=== PATIENT | female | born 1955 | race Caucasian/White ===

== ENCOUNTER 2019-01-23 07:00 | Outpatient (RCR) | payer MEDICARE, SELFPAY | END 2019-02-14 08:32 | disposition home or self-care (01) | LOC: PT.CARL 07:00 | PROVIDERS: Referring Provider Family Medicine; Visit Provider Family Medicine | DX: M25.511 Pain in right shoulder (principal) | CPT/HCPCS: 97014; 97110; 97163; G0283 ==

== ENCOUNTER 2021-03-28 04:44 | Emergency (ER) | payer MEDICARE, SELFPAY ==
[2021-03-28] VITALS (10 sets, daily range): BP systolic 128–168; BP diastolic 58–84; PULSE 62–92; RESP 11–21; TEMP 36.7; O2SAT 94–99; BMI 38.8
--- NOTE | 2021-03-28 04:52 | ECG_ITS ---
APPROVED REPORT Exam: Resting ECG HR:86 bpm ECG Measurements Heart Rate 86 AXES ND 152 P 35 QRSd 88 QRS 11 QT 378 T 36 QTc 452 Conclusion Normal sinus rhythm Minimal voltage criteria for LVH, may be normal variant Borderline ECG Electronically signed by : Baron Herrera, 03/30/2021 21:42:18
--- NOTE | 2021-03-28 05:21 | [facility].EDNVD ---
ED Disposition Clinical Impression: Abdominal pain Qualifiers: Abdominal location: epigastric Qualified Code(s): R10.13 - Epigastric pain Disposition: Home, Self-Care Condition on Discharge: Good Instructions: DI for Acute Abdominal Pain Additional Instructions: use meds and call pcp for follow up and gi eval Prescriptions: Pantoprazole Sodium [Protonix 40mg tablet] 40 mg PO DAILY #30 tab Transmission Status: Pending to [id number] Referrals: Manuela Sinha DO [Primary Care Provider] - - Critical Care Critical Care Time: No Attestation: On 03/28/21, the high probability of a clinically significant, sudden or life threatening deterioration of the following system(s) required my full and direct attention, intervention and personal management. The time I documented below is in addition to time spent performing reported procedures but includes the following listed in this critical care notation. Medical Decision Making - Medical Records Medical records reviewed: Yes: I reviewed the patient's medical records. - Ciro Inquiry Pt receiving controlled substance: No Vital Signs: 03/28/21 05:01 03/28/21 05:30 03/28/21 06:01 Temperature 98.0 F Temperature Source Oral Pulse Rate 92 H 75 Pulse Rate [Right] 88 Respiratory Rate 18 18 16 Blood Pressure 150/78 H 139/81 Blood Pressure [Right Arm] 168/84 H Blood Pressure Mean Blood Pressure Mean [Right Arm] 112 Blood Pressure Source [Right Arm] Automatic Cuff Blood Pressure Position [Right Arm] Supine 02 Sat by Pulse Oximetry 97 95 95 Oxygen Delivery Method Room Air 03/28/21 06:30 03/28/21 07:06 03/28/21 07:31 Temperature Temperature Source Pulse Rate 71 72 66 Pulse Rate [Right] Respiratory Rate 15 21 11 L Blood Pressure 136/68 141/75 H 128/66 Blood Pressure [Right Arm] Blood Pressure Mean 81 Blood Pressure Mean [Right Arm] Blood Pressure Source [Right Arm] Blood Pressure Position [Right Arm] 02 Sat by Pulse Oximetry 94 L 94 L 96 Oxygen Delivery Method 03/28/21 07:52 Temperature Temperature Source Pulse Rate 66 Pulse Rate [Right] Respiratory Rate 14 Blood Pressure 128/66 Blood Pressure [Right Arm] Blood Pressure Mean Blood Pressure Mean [Right Arm] Blood Pressure Source [Right Arm] Blood Pressure Position [Right Arm] 02 Sat by Pulse Oximetry 98 Oxygen Delivery Method Room Air - Lab Data Lab results reviewed: Yes: I reviewed the patient's lab results. Lab Results 03/28/21 06:17: WBC 8.4, RBC 4.59, Hgb 13.9, Hct 42.0, MCV 91.5, MCH 30.3, MCHC 33.2, RDW 12.9, Plt Count 404, MPV 7.0 L, Neut % (Auto) 73.4, Lymph % (Auto) 18.6, Oliver % (Auto) 5.5, Eos % (Auto) 2.0, Baso % (Auto) 0.6, Neut # (Auto) 6.1, Lymph # (Auto) 1.6, Oliver # (Auto) 0.5, Eos # (Auto) 0.2, Baso # (Auto) 0.1, ESR 26 03/28/21 06:17: Sodium 138, Potassium 4.2, Chloride 98, Carbon Dioxide 31 H, Anion Gap 13.2, BUN 18 H, Creatinine 0.80, Estimated Creat Clear 97, Estimated GFR 72, Est GFR ( Amer) 87, Glucose 126 H, Calcium 9.3, Total Bilirubin 0.7, AST 23, ALT 20, Alkaline Phosphatase 108, Troponin I < 0.01, C-Reactive Protein 7.4 H, Total Protein 7.4, Albumin 4.2, Globulin 3.2, Albumin/Globulin Ratio 1.3, Amylase 51, Lipase 84, Procalcitonin 0.051 03/28/21 06:17: NT-Pro-B Natriuret Pep 56.0 Result diagrams: 03/28/21 06:17 03/28/21 06:17 Orders (Tests/Meds): ED MEDICATIONS Generic Name Dose Route Start Last Admin Trade Name Freq PRN Reason Stop Dose Admin Sodium Chloride 8 ml 03/28/21 05:24 Sodium Chloride 0.9% 10ml Vial IV 04/27/21 05:23 NEEDED PRN dilute pepcid Discontinued Medications Generic Name Dose Route Start Last Admin Trade Name Freq PRN Reason Stop Dose Admin Famotidine 20 mg 03/28/21 05:24 03/28/21 06:13 Famotidine 20mg/2ml Vial IV 03/28/21 05:25 20 mg ONCE ONE Administration Sodium Chloride 1,000 mls @ 999 mls/hr 03/28/21 05:30 03/28/21 06:13
--- NOTE | 2021-03-28 05:24 | XR_ITS ---
PROCEDURE INFORMATION: Exam: XR Chest Exam date and time: 03/28/2021 5:24 AM Age: 65 years old Clinical indication: Chest pressure; Patient HX: Chest pain x 2 days. Non smoker. N/v TECHNIQUE: Imaging protocol: XR of the chest. Views: 2 views. COMPARISON: CR CXR CHEST(2 VIEWS-NOT PORTABLE) 06/17/2015 8:14 AM FINDINGS: Lungs: There is no consolidation. Pleural spaces: There is no pleural effusion or pneumothorax. Heart/Mediastinum: Cardiac silhouette is within normal limits and I do not see overt congestive heart failure. Vasculature: There is tortuosity of the descending aorta which can be seen with chronic hypertension and/or senescense. Bones/joints: The bones are grossly intact. IMPRESSION: No acute cardiopulmonary process identified.
--- NOTE | 2021-03-28 05:24 | CT_ITS ---
PROCEDURE INFORMATION: Exam: CT Abdomen And Pelvis With Contrast Exam date and time: 03/28/2021 5:24 AM Age: 65 years old Clinical indication: Abdominal pain; Tenderness; Right upper quadrant (ruq); Additional info: N/v with abd pain TECHNIQUE: Imaging protocol: Computed tomography of the abdomen and pelvis with contrast. Radiation optimization: All CT scans at this facility use at least one of these dose optimization techniques: automated exposure control; mA and/or kV adjustment per patient size (includes targeted exams where dose is matched to clinical indication); or iterative reconstruction. Contrast material: ISOVUE; Contrast volume: 75 ml; Contrast route: IV; COMPARISON: ABD US ABD(COMPLETE-MULTI ORGANS 10/04/2016 7:45 AM FINDINGS: Heart: The cardiac chambers are grossly unremarkable. Liver: Hepatic steatosis. Gallbladder and bile ducts: Status post cholecystectomy. Pancreas: There is mild peripancreatic stranding adjacent to the pancreatic head and duodenal sweep. Findings may be sequelae of fatty infiltration, although, pancreatitis cannot be excluded. Laboratory correlation advised. Spleen: No splenomegaly or splenic mass. Adrenal glands: Normal. No mass. Kidneys and ureters: No nephrolithiasis, ureterolithiasis or hydronephrosis. Stomach and bowel: There is diverticulosis but no definite diverticulitis. Appendix: No evidence of appendicitis. No appendicolith. Intraperitoneal space: No free fluid, free air or focal inflammatory infiltration. Vasculature: There are indeterminate tiny intraluminal filling defect suggested within the lower lobe pulmonary arteries. This could be motion artifact but raises the question of small emboli. Further evaluation with a dedicated CT of the chest might be helpful. Lymph nodes: No enlarged lymph nodes within the retroperitoneal space or mesentery. Urinary bladder: Unremarkable as visualized. Reproductive: Unremarkable as visualized. Bones/joints: Unremarkable. No acute fracture. No osteolytic or blastic bone lesions. Soft tissues: Paraspinous and extracorporeal soft tissues are unremarkable. IMPRESSION: 1. Diverticulosis without convincing evidence of diverticulitis. 2. Status post cholecystectomy. 3. Mild peripancreatic fat stranding adjacent to the pancreatic head and duodenal sweep. The findings may simply reflect fatty infiltration. However, I cannot exclude pancreatitis, a duodenal ulcer or duodenitis. 4. Hepatic steatosis. 5. Indeterminate tiny intraluminal filling defects suggested within the lower lobes. This may simply be motion artifact but I cannot exclude small emboli. Further evaluation with a dedicated chest CTA might be helpful.
[2021-03-28 06:27] LABS: Basophils # 0.1 K/mm3 (0-0.2); Basophils % 0.6 % (0.1-2.0); Eosinophils # 0.2 K/mm3 (0.0-0.4); Hemoglobin 13.9 g/dL (12.2-16.2); Lymphocytes # 1.6 K/mm3 (0.7-4.5); Lymphocytes % 18.6 % (10-50); Mean Corpuscular HGB Conc 33.2 g/dL (31.8-35.4); Mean Corpuscular Hemoglobin 30.3 pg (27.0-31.2); Mean Corpuscular Volume 91.5 fl (81-99); Monocytes # 0.5 K/mm3 (0.1-1.0); Monocytes % 5.5 % (1.7-9.3); Neutrophils # 6.1 K/mm3 (1.8-7.8); Neutrophils % 73.4 % (37.0-80.0); Platelet Count 404 K/mm3 (142-424); Red Blood Count 4.59 M/mm3 (4.20-5.40); Red Cell Distribution Width 12.9 % (11.5-17.5); White Blood Count 8.4 K/mm3 (4.8-10.8)
[2021-03-28 06:34] LABS: Alanine Aminotransferase 20 U/L (12-78); Albumin Level 4.2 g/dl (3.5-5.0); Albumin/Globulin Ratio 1.3 (1.1-1.8); Alkaline Phosphatase 108 U/L (38-126); Amylase 51 U/L (30-110); Anion Gap 13.2 mEq/L (5-15); Aspartate Amino Transferase 23 U/L (14-36); Bilirubin,Total 0.7 mg/dl (0.2-1.3); Blood Urea Nitrogen 18 mg/dl (7-17); Calcium 9.3 mg/dl (8.4-10.2); Carbon Dioxide 31 mmol/L (22.0-30.0); Chloride 98 mmol/L (98-107); Creatinine Clearance Estimated 97 mL/min (50-200); Estimated Glomerular Filt Rate 72 ml/min (>60); GFR (African American) 87 ML/MIN (>60); Globulin 3.2 g/dL (1.3-3.2); Glucose 126 mg/dl (74-100); Lipase 84 U/L (23-300); Potassium 4.2 mmoL/L (3.5-5.1); Sodium 138 mmol/L (136-145); Total Protein,Serum 7.4 g/dl (6.3-8.2)
[2021-03-28 06:40] LABS: C-Reactive Protein 7.4 mg/L (0-4)
[2021-03-28 06:54] LABS: Procalcitonin 0.051 ng/mL (0.0-2.0)
[2021-03-28 06:58] LABS: Erythrocyte Sedimentation Rate 26 mm/hr (0-30)
[2021-03-28 06:59] LABS: Troponin I < 0.01 ng/ml (0.00-0.034)
--- NOTE | 2021-03-28 08:00 | PC.NURSE ---
lab notified to run patient's second troponin
[2021-03-28 08:36] LABS: Troponin I < 0.01 ng/ml (0.00-0.034)
== END 2021-03-28 08:43 | disposition home or self-care (01) ==
PROVIDERS: Emergency Provider Emergency Medicine; PCP Family Medicine
DX: R10.84 Generalized abdominal pain (principal); R07.9 Chest pain, unspecified; R06.02 Shortness of breath
CPT/HCPCS: 36415; 71046; 74177; 80053; 82150; 83690; 83880; 84145; 84484; 85025; 85651; 86140; 93005; 96365; 99282; J2405; Q9967